=== PATIENT | female | born 1985 | race Two or more races ===

== ENCOUNTER 2022-07-26 22:51 | Emergency (ER) | payer BC ==
[~2022-07-26] VITALS: Ht 170.2 cm; Wt 105.7 kg
[2022-07-27] MEDS ORDERED: PROZAC20 MG (00:12)
[2022-07-27] MEDS ORDERED: HYDROXYCHLOROQ200 MG (00:15)
[2022-07-27] MEDS ORDERED: CENTANY30 GM TOP (01:27)
[2022-07-27] MEDS ORDERED: ZITHROMAX500 MG PO (01:27)
== END 2022-07-27 01:35 | disposition home or self-care (01) ==
LOC: ER 22:51
DX: S50.862A Insect bite (nonvenomous) of left forearm, initial encounter (principal); S50.861A Insect bite (nonvenomous) of right forearm, initial encounter; S20.462A Insect bite (nonvenomous) of left back wall of thorax, initial encounter; W57.XXXA Bitten or stung by nonvenomous insect and other nonvenomous arthropods, initial encounter; Y93.9 Activity, unspecified; Y92.9 Unspecified place or not applicable